=== PATIENT | female | born 1990 | race African-American/Black ===

== ENCOUNTER 2019-10-06 14:56 | Emergency (ER) | payer OTHER ==
--- NOTE | 2019-10-06 15:03 | PDOC ---
Rapid Medical Evaluation Time Seen by Provider: 10/06/19 14:58 Medical Evaluation: 10/06/19 14:58 I have performed a brief in-person evaluation of this patient. The patient presents with a chief complaint of: 17 wks , RLQ pain since yesterday, +urinary frequency since yesterday, sent by OB from appt today , denies cramps/vag bleeding, LMP 06/04 Pertinent physical exam findings: RLQ tenderness I have ordered the following: urine, labs, US The patient will proceed to the ED for further evaluation. Discharge Disposition - Diagnosis Abdominal pain affecting - Referrals - Patient Instructions - Post Discharge Activity
[2019-10-06 15:17] VITALS: BMI 37.2
[2019-10-06 15:46] LABS: BASO % 0.3 % (0-2.0); EOS % 1.2 % (0-4.5); HEMATOCRIT 35.1 % (32.4-45.2); HEMOGLOBIN 11.9 GM/dL (10.7-15.3); LYMPH % 21.4 % (8-40); MCH 29.9 pg (25.7-33.7); MCHC 33.8 g/dl (32.0-36.0); MEAN CELL VOLUME 88.3 fl (80-96); MEAN PLT VOLUME 8.4 fl (7.5-11.1); MONO % 9.6 % (3.8-10.2); NEUT % 67.5 % (42.8-82.8); PLATELET COUNT 304 K/MM3 (134-434); RBC 3.97 M/mm3 (3.60-5.2); RDW 13.9 % (11.6-15.6); WHITE BLOOD COUNT 8.3 K/mm3 (4.0-10.0)
[2019-10-06] MEDS ORDERED: ACETAMINOPHEN 500 MG TABLET (FP) PO ONE (15:47)
[2019-10-06 15:54] LABS: EPI CELLS 7.3 /HPF (0-5/HPF); HYALINE CASTS 9 /lpf (0-8); URINE APPEARANCE CLOUDY; URINE BACTERIA 85.5 /hpf (NEGATIVE); URINE BILIRUBIN NEGATIVE (NEGATIVE); URINE COLOR YELLOW; URINE GLUCOSE (UA) NEGATIVE (NEGATIVE); URINE KETONE NEGATIVE (NEGATIVE); URINE LEUK ESTERASE 1+ (NEGATIVE); URINE NITRITE NEGATIVE (NEGATIVE); URINE PROTEIN NEGATIVE (NEGATIVE); URINE RBC 4 /hpf (0-4); URINE WBC 8 /hpf (0-5)
--- NOTE | 2019-10-06 16:01 | PDOC ---
History of Present Illness <Awilda Finn Humaliana - Last Filed: 10/06/19 17:15> - General History Source: Patient Exam Limitations: No Limitations - History of Present Illness Travel History: No Initial Comments: 10/06/19 15:30 29-year-old female approximately 17 weeks presents to the ED with complaints of right lower quadrant and left right upper quadrant cramping since last night worsening in severity today. Patient states has had normal ultrasounds for this and denies any history of gallstones, appendicitis, renal colic or a recent UTI. Patient denies nausea, vomiting, fever, chills, change in appetite or diarrhea. Patient also denies increased gas or constipation. Timing/Duration: reports: changing over time Quality: reports: moderate, cramping, fullness Abdominal Pain Onset Location: reports: RUQ, RLQ Pain Radiation: reports: no radiation Activities at Onset: reports: none Aggravating Factors: improves with: None Alleviating Factors: improves with: None <Porsha Dougherty - Last Filed: 10/09/19 11:00> - General Chief Complaint: Back Pain Stated Complaint: 17 WK NE/RT LOWER ABD PAIN Time Seen by Provider: 10/06/19 14:58 Past History <Awilda Finn - Last Filed: 10/06/19 17:15> - Travel Traveled outside of the country in the last 30 days: No Close contact w/someone who was outside of country & ill: No - Past Medical History COPD: No - Psycho Social/Smoking Cessation Hx Smoking History: Unknown if ever smoked Have you smoked in the past 12 months: No Information on smoking cessation initiated: No Hx Alcohol Use: No Drug/Substance Use Hx: No Patient Lives Alone: No Lives with/in: spouse/SO <Porsha Dougherty - Last Filed: 10/09/19 11:00> - Past Medical History Allergies/Adverse Reactions: Allergies Allergy/AdvReac Type Severity Reaction Status Date / Time No Known Allergies Allergy Verified 10/06/19 15:17 Home Medications: Ambulatory Orders Miconazole Nitrate 1 applic TP BID #1 cream..g. 10/06/19 Review of Systems - Review of Systems Able to Perform ROS?: Yes Constitutional: No: Symptoms Reported HEENTM: No: Symptoms Reported Respiratory: No: Symptoms reported Cardiac (ROS): No: Symptoms Reported ABD/GI: Yes: Abdominal cramping : No: Symptoms Reported Musculoskeletal: No: Symptoms Reported Integumentary: No: Symptoms Reported Neurological: No: Symptoms reported <Porsha Dougherty - Last Filed: 10/09/19 11:00> *Physical Exam - Vital Signs Last Vital Signs Temp Pulse Resp BP Pulse Ox 97.9 F 96 H 16 135/79 100 10/06/19 15:00 10/06/19 15:00 10/06/19 15:00 10/06/19 15:00 10/06/19 15:00 <Awilda Finn - Last Filed: 10/06/19 17:15> - Vital Signs Last Vital Signs Temp Pulse Resp BP Pulse Ox 97.9 F 96 H 16 135/79 100 10/06/19 15:00 10/06/19 15:00 10/06/19 15:00 10/06/19 15:00 10/06/19 15:00 - Physical Exam General Appearance: Yes: Nourished, Appropriately Dressed. No: Apparent Distress HEENT: negative: Pale Conjunctivae Neck: positive: Supple Respiratory/Chest: positive: Lungs Clear, Normal Breath Sounds. negative: Respiratory Distress, Accessory Muscle Use Cardiovascular: positive: Regular Rhythm, Regular Rate. negative: Murmur Gastrointestinal/Abdominal: positive: Soft, Tenderness (Right upper quadrant right flank and right lower quadrant) Musculoskeletal: negative: CVA Tenderness Extremity: positive: Normal Inspection Integumentary: positive: Normal Color, Warm Neurologic: positive: Motor Strength 5/5 (Ambulatory) <Porsha Dougherty - Last Filed: 10/09/19 11:00> ED Treatment Course - LABORATORY CBC & Chemistry Diagram: 10/06/19 15:16 10/06/19 15:16 - ADDITIONAL ORDERS Additional order review: Laboratory Results 10/06/19 10/06/19 10/06/19 15:16 15:16 15:16 Sodium 136 Potassium 3.5 Chloride 106 Carbon Dioxide 22 Anion Gap 8 BUN 8.7 Creatinine 0.5 L Est GFR (CKD-EPI)AfAm 152.65 Est GFR (CKD-EPI)NonAf 131.71 Random Glucose 51 L Calcium 9.6 Total Bilirubin 0.4 AST 32 ALT 63 H Alkaline Phosphatase 70 Total Protein 7.1 Albumin 3.0 L Lipase 83 Beta HCG, Quant 86371.5 Urine Color Yellow Urine Appearance Cloudy Urine pH 5.0 Ur Specific [place] 1.026 Urine Protein Negative Urine Glucose (UA) Negative Urine Ketones Negative Urine Blood Negative Urine Nitrite Negative Urine Bilirubin Negative Urine Urobilinogen 1.0 Ur Leukocyte Esterase 1+ H Urine WBC (Auto) 8 Urine RBC (Auto) 4 Urine Casts (Auto) 9 U Epithel Cells (Auto) 7.3 Urine Crystals (Auto) Uric acid 3+ Urine Bacteria (Auto) 85.5 Urine Yeast (Auto) 4+ 10/06/19 15:16 RBC 3.97 MCV 88.3 MCHC 33.8 RDW 13.9 MPV 8.4 Neutrophils % 67.5 Lymphocytes % 21.4 Monocytes % 9.6 Eosinophils % 1.2 Basophils % 0.3 <Awilda Finn - Last Filed: 10/06/19 17:15> - LABORATORY CBC & Chemistry Diagram: 10/06/19 15:16 10/06/19 15:16 - ADDITIONAL ORDERS Additional order review: 10/06/19 15:16 RBC 3.97 MCV 88.3 MCHC 33.8 RDW 13.9 MPV 8.4 Neutrophils % 67.5 Lymphocytes % 21.4 Monocytes % 9.6 Eosinophils % 1.2 Basophils % 0.3 - RADIOLOGY Radiology Studies Ordered: Category Date Time Status GALLBLADDER US [US] Stat Ultrasound 10/06/19 15:49 Ordered <Porsha Dougherty - Last Filed: 10/09/19 11:00> Medical Decision Making - Medical Decision Making The patient was seen and evaluated in conjunction with midlevel provider under my direct supervision, ancillary studies were reviewed. I agree with the plan as outlined with SAMARA Dougherty. HPI, workup/dispo as outlined. VS reviewed, wnl. sent in from [facility] by Dr Patel, public health administrator for flank pain/ possible pyelo seen and eval at bedside with CABIN CLEANER, +RUQ and RLQ pain. no CVAT equivocal UA MRI to r/o appy pain control labs and lytes wnl. live IUP on sono 10/06/19 17:02 10/06/19 17:15 <Awilda Finn - Last Filed: 10/06/19 17:15> - Medical Decision Making 10/06/19 16:02 Chief complaint: Right abdominal cramping without associated symptoms patient is currently 17 weeks . Patient is followed at [facility] for WELFARE INVESTIGATOR care. Exam: Patient with right lower quadrant right flank and right upper quadrant tenderness no rebound no guarding normal bowel sounds throughout. Plan: Labs, urine, gallbladder and ultrasound ordered patient also ordered Tylenol. 10/06/19 18:14 Laboratory Tests 10/06/19 10/06/19 10/06/19 15:16 15:16 15:16 WBC 8.3 Hgb 11.9 Hct 35.1 Absolute Neuts (auto) 5.6 Sodium 136 Potassium 3.5 Chloride 106 Carbon Dioxide 22 Anion Gap 8 BUN 8.7 Creatinine 0.5 L Est GFR (CKD-EPI)NonAf 131.71 Random Glucose 51 L Calcium 9.6 Total Bilirubin 0.4 AST 32 ALT 63 H Alkaline Phosphatase 70 Total Protein 7.1 Albumin 3.0 L Lipase 83 Beta HCG, Quant 93117.5 Case discussed with WELFARE INVESTIGATOR Dr. ac who agrees patient should be admitted for an MRI since ultrasound was inconclusive and patient may have a early appendicitis. Patient's ultrasound showed 19 weeks 3 days 10/06/19 18:24 Laboratory Tests 10/06/19 10/06/19 10/06/19 15:16 15:16 15:16 WBC 8.3 Hgb 11.9 Hct 35.1 Absolute Neuts (auto) 5.6 Sodium 136 Potassium 3.5 Chloride 106 Carbon Dioxide 22 Anion Gap 8 BUN 8.7 Creatinine 0.5 L Est GFR (CKD-EPI)AfAm 152.65 Est GFR (CKD-EPI)NonAf 131.71 Random Glucose 51 L Calcium 9.6 Total Bilirubin 0.4 AST 32 ALT 63 H Alkaline Phosphatase 70 Total Protein 7.1 Albumin 3.0 L Lipase 83 Beta HCG, Quant 50012.5 Urine Ketones Urine Nitrite Ur Leukocyte Esterase Urine WBC (Auto) Urine RBC (Auto) Urine Casts (Auto) U Epithel Cells (Auto) Urine Crystals (Auto) 10/06/19 15:16 WBC Hgb Hct Absolute Neuts (auto) Sodium Potassium Chloride Carbon Dioxide Anion Gap BUN Creatinine Est GFR (CKD-EPI)AfAm Est GFR (CKD-EPI)NonAf Random Glucose Calcium Total Bilirubin AST ALT Alkaline Phosphatase Total Protein Albumin Lipase Beta HCG, Quant Urine Ketones Negative Urine Nitrite Negative Ur Leukocyte Esterase 1+ H Urine WBC (Auto) 8 Urine RBC (Auto) 4 Urine Casts (Auto) 9 U Epithel Cells (Auto) 7.3 Urine Crystals (Auto) Uric acid 3+ Case discussed with Dr. Ac, patient's WELFARE INVESTIGATOR and agrees if MRI is warranted to admit patient but is recommending another WELFARE INVESTIGATOR for admission since he does not have priviledges here at [facility]. Case discussed with Dr. Trinidad who recommends surgical consult. Case discussed with Dr. gil and is recommending emergent MRI and to consult him once MRI results are resulted. 10/06/19 18:36 Order for consult to Dr. gil placed in computer along with MRI ordered <Porsha Dougherty - Last Filed: 10/09/19 11:00> Discharge <Awilda Finn - Last Filed: 10/06/19 17:15> - Discharge Information Problems reviewed: Yes <Porsha Dougherty - Last Filed: 10/09/19 11:00> - Discharge Information Clinical Impression/Diagnosis: Abdominal pain affecting , Pelvic pain, Kaci vaginitis Disposition: HOME - Additional Discharge Information Prescriptions: Miconazole Nitrate 1 applic TP BID #1 cream..g. - Follow up/Referral Referrals: Joo Baltazar [Primary Care Provider] - - Patient Discharge Instructions Patient Printed Discharge Instructions: Ovarian Cyst Additional Instructions: take tylenol every 4 - 6 hours as needed for pain follow up with you OB/ fur tinter as soon as possible return to the ER for any worsening symptoms. - Post Discharge Activity Work/Back to School Note: Back to Work
[2019-10-06 16:07] LABS: BILIRUBIN,TOTAL 0.4 mg/dL (0.2-1); BLOOD UREA NITROGEN 8.7 mg/dL (7-18); CALCIUM 9.6 mg/dL (8.5-10.1); CREATININE 0.5 mg/dL (0.55-1.3); POTASSIUM 3.5 mmol/L (3.5-5.1); TOT PROT 7.1 g/dl (6.4-8.2)
[2019-10-06 16:49] LABS: URINE CRYSTALS URIC ACID 3+ /hpf; YEAST 4+ (NEGATIVE)
[2019-10-06] MEDS ORDERED: ACETAMINOPHEN 325 MG TABLET (FP) ONE (18:09)
[2019-10-06] MEDS ORDERED: DEXTROSE 5%-NORMAL SALINE 1,000 ML IV ONE (18:53)
[2019-10-06 19:02] VITALS: BP 114/72; PULSE 91; TEMP 98
--- NOTE | 2019-10-06 19:27 | PDOC ---
*Physical Exam - Vital Signs Last Vital Signs Temp Pulse Resp BP Pulse Ox 98.0 F 91 H 16 114/72 100 10/06/19 19:01 10/06/19 19:01 10/06/19 15:00 10/06/19 19:01 10/06/19 19:01 ED Treatment Course - LABORATORY CBC & Chemistry Diagram: 10/06/19 15:16 10/06/19 15:16 - ADDITIONAL ORDERS Additional order review: Laboratory Results 10/06/19 10/06/19 10/06/19 15:16 15:16 15:16 Sodium 136 Potassium 3.5 Chloride 106 Carbon Dioxide 22 Anion Gap 8 BUN 8.7 Creatinine 0.5 L Est GFR (CKD-EPI)AfAm 152.65 Est GFR (CKD-EPI)NonAf 131.71 Random Glucose 51 L Calcium 9.6 Total Bilirubin 0.4 AST 32 ALT 63 H Alkaline Phosphatase 70 Total Protein 7.1 Albumin 3.0 L Lipase 83 Beta HCG, Quant 78403.5 Urine Color Yellow Urine Appearance Cloudy Urine pH 5.0 Ur Specific [place] 1.026 Urine Protein Negative Urine Glucose (UA) Negative Urine Ketones Negative Urine Blood Negative Urine Nitrite Negative Urine Bilirubin Negative Urine Urobilinogen 1.0 Ur Leukocyte Esterase 1+ H Urine WBC (Auto) 8 Urine RBC (Auto) 4 Urine Casts (Auto) 9 U Epithel Cells (Auto) 7.3 Urine Crystals (Auto) Uric acid 3+ Urine Bacteria (Auto) 85.5 Urine Yeast (Auto) 4+ 10/06/19 15:16 RBC 3.97 MCV 88.3 MCHC 33.8 RDW 13.9 MPV 8.4 Neutrophils % 67.5 Lymphocytes % 21.4 Monocytes % 9.6 Eosinophils % 1.2 Basophils % 0.3 - Medications Given in the ED: ED Medications Discontinued Medications Generic Name Dose Route Start Last Admin Trade Name Freq PRN Reason Stop Dose Admin Acetaminophen 975 mg 10/06/19 15:47 10/06/19 18:28 Tylenol - PO 10/06/19 15:48 975 mg ONCE ONE Administration Medical Decision Making - Medical Decision Making 10/06/19 21:41 No acute inflammatory changes in the right midabdomen, around the cecum. No thickening of the lateroconal fascia. The appendix is not identified as a fluid- filled structure and no tubular structures demonstrated wall thickening in this area. The terminal ileum is normal in appearance.. There is a small amount of fluid around the right ovary as well as the right gonadal vein. The patient may have ruptured a right ovarian cyst. Thrombosis of the right gonadal vein could also have occurred. If the patient's pain continues despite conservative management, ultrasound of the right ovary should be obtained to exclude torsion. Gravid uterus with a viable bartholomew in breech presentation. Compression the bladderis noted without ureterectasis or hydronephrosis. Normal gallbladder in the right upper quadrant. repeat Pelvic US . normal ovary 10/06/19 21:47 no urinary symptoms has vaginal itch. yeast in UA will give miconozole for vaginitis Discharge - Discharge Information Problems reviewed: Yes Clinical Impression/Diagnosis: Abdominal pain affecting , Pelvic pain, Kaci vaginitis Disposition: HOME - Additional Discharge Information Prescriptions: Miconazole Nitrate 1 applic TP BID #1 cream..g. - Follow up/Referral Referrals: Joo Baltazar [Primary Care Provider] - - Patient Discharge Instructions Patient Printed Discharge Instructions: Ovarian Cyst Additional Instructions: take tylenol every 4 - 6 hours as needed for pain follow up with you OB/ product development engineer as soon as possible return to the ER for any worsening symptoms. - Post Discharge Activity Work/Back to School Note: Back to Work
== END 2019-10-06 21:57 | disposition home or self-care (01) ==
LOC: JER 14:56
PROC: 3E0337Z Introduction of Electrolytic and Water Balance Substance into Peripheral Vein, Percutaneous Approach (ICD-10-PCS; principal; 2019-10-06)
DX: O26.892 Other specified pregnancy related conditions, second trimester (principal); Z3A.17 17 weeks gestation of pregnancy; R10.9 Unspecified abdominal pain; R10.2 Pelvic and perineal pain; B37.3 Candidiasis of vulva and vagina
CPT/HCPCS: 36415; 74181-TC; 76705-TC; 76817-TC; 76856-TC; 80053; 81003; 83690; 84702; 85025; 87086; 99282-25

== ENCOUNTER 2022-01-29 23:15 | Emergency (ER) | payer OTHER ==
[2022-01-29 23:27] VITALS: BP 143/91; PULSE 81; TEMP 98.7; BMI 37.2
== END 2022-01-30 01:25 | disposition home or self-care (01) ==
LOC: JER 23:15
DX: N93.9 Abnormal uterine and vaginal bleeding, unspecified (principal)
CPT/HCPCS: 76856-TC; 99284-25

== ENCOUNTER 2022-05-23 14:31 | Emergency (ER) | payer OTHER ==
[2022-05-23 14:55] VITALS: BP 124/76; PULSE 76; RESP 17; TEMP 98.3; BMI 40.7
== END 2022-05-23 15:43 | disposition home or self-care (01) ==
LOC: JER 14:31
DX: K46.9 Unspecified abdominal hernia without obstruction or gangrene (principal)
CPT/HCPCS: 99281-25